=== PATIENT | male | born 1975 | race Caucasian/White ===

== ENCOUNTER 2024-01-05 07:36 | Inpatient (IN) | payer OTHER ==
[~2024-01-05] VITALS: Ht 180.3 cm; Wt 76.2 kg
[2024-01-05 09:11] LABS: Basophils # (auto) 0 10 ^3/uL (0-0.2); Basophils % (auto) 0.2 % (0.0-2.0); Eosinophils # (auto) 0.1 10 ^3/uL (0-0.8); Eosinophils % (auto) 0.6 % (0.0-7.0); Hemoglobin 14.6 g/dL (13.5-17.5); Lymphocytes # (auto) 1.6 10 ^3/uL (0.4-5.4); Lymphocytes % (auto) 12.4 % (10.0-50.0); Mean Corpuscular Hemoglobin 32.1 pg (28.0-32.0); Mean Corpuscular Hgb Conc. 34.7 g/dL (32.0-36.0); Mean Corpuscular Volume 92.5 fL (80.0-100.0); Monocytes # (auto) 0.9 10 ^3/uL (0-1.3); Monocytes % (auto) 7.4 % (0.0-12.0); Neutrophils # (auto) 10.1 10 ^3/uL (1.6-8.6); Neutrophils % (auto) 79.4 % (37.0-80.0); Platelet Count (auto) 228 10^3/uL (140-450); Red Blood Cells 4.54 10^6/uL (4.5-5.90); Red Cell Distribution Width 12.3 % (11.8-14.3); White Blood Cell 12.7 10^3/uL (4.4-10.8)
[2024-01-05] MEDS: KETOROLAC TROMETH 60MG/2ML VIAL IM ONE (09:14)
[2024-01-05 09:34] LABS: Alanine Aminotransferase 12 U/L (7-40); Albumin 4.7 g/dL (3.2-4.8); Alkaline Phosphatase 63 U/L (46-116); Anion Gap 5 (5-15); Aspartate Aminotransferase 8 U/L (13-40); BUN/Creatinine Ratio 6.1 (10.0-20.0); Blood Urea Nitrogen 7 mg/dL (9-23); Carbon Dioxide 30 mmol/L (20-30); Chloride 105 mmol/L (98-107); Glucose 101 mg/dL (74-106); Potassium 4.3 mmol/L (3.5-5.1); Sodium 140 mmol/L (136-145)
[2024-01-05 09:35] LABS: Bilirubin, Total 1.3 mg/dL (0.2-1.0)
[2024-01-05 10:01] LABS: Lipase 50 U/L (12-53)
[2024-01-05] MEDS ORDERED: NITROGLYCERIN 0.4 MG SL TAB SL PRN (10:45)
[2024-01-05] MEDS: PANTOPRAZOLE 40 MG/10 ML VIAL INJ IV ONE (11:25)
[2024-01-05] MEDS: PIPERACILLIN-TAZOB 3.375GM 100 ML IV ONE (11:26)
[2024-01-05] MEDS: SODIUM CHLORIDE 0.9% 1,000 ML IV SCH (11:26)
[2024-01-05] MEDS ORDERED: fentaNYL CITRATE 100 MCG/2 ML VL IV ONE (12:00)
[2024-01-05] MEDS: fentaNYL CITRATE 100 MCG/2 ML VL IV PRN (12:04)
[2024-01-05 13:43] LABS: Urine Bacteria None Seen /hpf (None Seen); Urine WBC None Seen /hpf (0 - 3)
[2024-01-05] MEDS: PIPERACILLIN-TAZOB 3.375GM 100 ML IV SCH (14:00)
[2024-01-05 14:05] LABS: Urine Blood Negative /uL (Negative); Urine Clarity Clear (Clear); Urine Color Light-Yellow (Yellow); Urine Protein, UAD Negative (Negative); Urine Specific Gravity 1.008 (1.001-1.035); Urine Urobilinogen Normal (Negative); Urine pH 6.5 (5.0-9.0)
[2024-01-05 16:50] VITALS: BP 123/61; PULSE 76; RESP 18; TEMP 98; O2SAT 96
[2024-01-05 16:58] VITALS: BP 112/72; PULSE 60; RESP 16; TEMP 97.7; O2SAT 97
[2024-01-05] MEDS ORDERED: MORPHINE SULFATE INJ 2 MG/ml SYRG IV PRN (17:30)
[2024-01-05] MEDS: D5W/SOD CHL 0.45%/KCL 20MEQ 1,000 ML IV SCH (18:33)
[2024-01-05] MEDS: metroNIDAZOLE 500MG/100ML 100 ML IV ONE (18:33)
[2024-01-05] MEDS: MORPHINE SULFATE INJ 2 MG/ml SYRG IV ONE (18:34)
[2024-01-05 21:00] VITALS: BP 115/72; PULSE 66; RESP 18; TEMP 97.8; O2SAT 95
[2024-01-05] MEDS: PANTOPRAZOLE 40 MG/10 ML VIAL INJ IV SCH (21:37)
[2024-01-05] MEDS: metroNIDAZOLE 500MG/100ML 100 ML IV SCH (21:37)
[2024-01-05] MEDS: MORPHINE SULFATE INJ 2 MG/ml SYRG IV PRN (21:42)
[2024-01-06 01:00] VITALS: BP 124/78; PULSE 68; RESP 18; TEMP 97.7; O2SAT 96
[2024-01-06 05:00] VITALS: BP 140/86; PULSE 66; RESP 20; TEMP 97.5; O2SAT 97
[2024-01-06] MEDS: clonazePAM 0.5 MG TAB PO SCH (07:00)
[2024-01-06] MEDS: IOHEXOL 300 MG/ML 100ML BOTTLE IJ ONE (07:47)
[2024-01-06 08:11] LABS: Basophils # (auto) 0 10 ^3/uL (0-0.2); Basophils % (auto) 0.5 % (0.0-2.0); Eosinophils # (auto) 0.1 10 ^3/uL (0-0.8); Hematocrit 41.6 % (41.0-53.0); Hemoglobin 14.7 g/dL (13.5-17.5); Lymphocytes # (auto) 1.3 10 ^3/uL (0.4-5.4); Lymphocytes % (auto) 19.7 % (10.0-50.0); Mean Corpuscular Hemoglobin 32.3 pg (28.0-32.0); Mean Corpuscular Hgb Conc. 35.3 g/dL (32.0-36.0); Mean Corpuscular Volume 91.4 fL (80.0-100.0); Monocytes # (auto) 0.5 10 ^3/uL (0-1.3); Monocytes % (auto) 7.3 % (0.0-12.0); Neutrophils # (auto) 4.7 10 ^3/uL (1.6-8.6); Neutrophils % (auto) 70.5 % (37.0-80.0); Nucleated Red Blood Cells % 0.1 %; Platelet Count (auto) 214 10^3/uL (140-450); Red Blood Cells 4.55 10^6/uL (4.5-5.90); Red Cell Distribution Width 12.4 % (11.8-14.3); White Blood Cell 6.6 10^3/uL (4.4-10.8)
[2024-01-06 08:26] LABS: Alanine Aminotransferase 11 U/L (7-40); Albumin 4.4 g/dL (3.2-4.8); Alkaline Phosphatase 53 U/L (46-116); Anion Gap 8 (5-15); Aspartate Aminotransferase 8 U/L (13-40); BUN/Creatinine Ratio 8.3 (10.0-20.0); Bilirubin, Total 1.6 mg/dL (0.2-1.0); Blood Urea Nitrogen 9 mg/dL (9-23); Calcium 9.7 mg/dL (8.7-10.4); Carbon Dioxide 26 mmol/L (20-31); Chloride 108 mmol/L (98-107); Potassium 4.3 mmol/L (3.5-5.1); Sodium 142 mmol/L (136-145); Total Protein 6.5 g/dL (5.7-8.2)
[2024-01-06 08:30] LABS: Glucose 89 mg/dL (74-106)
[2024-01-06 09:04] VITALS: BP 119/80; PULSE 68; RESP 18; TEMP 98.4; O2SAT 96
[2024-01-06] MEDS ORDERED: PANTOPRAZOLE 40 MG/10 ML VIAL INJ IV SCH (10:00)
[2024-01-06 14:22] VITALS: BP 122/77; PULSE 64; RESP 19; TEMP 97.3; O2SAT 95
[2024-01-06 17:00] VITALS: BP 135/79; PULSE 78; RESP 20; TEMP 98; O2SAT 95
[2024-01-06] MEDS: ONDANSETRON HCL 4 MG/2 ML VIAL IV PRN (20:35)
[2024-01-06 21:00] VITALS: BP 121/69; PULSE 65; RESP 20; TEMP 98; O2SAT 97
[2024-01-07 05:00] VITALS: BP 120/71; PULSE 66; RESP 19; TEMP 97.7; O2SAT 96
[2024-01-07 09:00] VITALS: BP 152/93; PULSE 87; RESP 20; TEMP 98.2; O2SAT 96
[2024-01-07 12:46] VITALS: BP 127/81; PULSE 81; RESP 18; TEMP 97.9; O2SAT 95
[2024-01-07 16:46] VITALS: BP 120/82; PULSE 81; RESP 16; TEMP 98.4; O2SAT 91
[2024-01-07 21:00] VITALS: BP 122/81; PULSE 66; RESP 18; TEMP 97.5; O2SAT 95
[2024-01-08] VITALS (8 sets, daily range): BP systolic 105–151; BP diastolic 66–93; PULSE 60–73; RESP 16–18; TEMP 97.2–98; O2SAT 90–97
[2024-01-08] MEDS: IBUPROFEN 600 MG TAB PO PRN (04:48)
[2024-01-08] MEDS ORDERED: CLON0.5T3 PO (06:45)
[2024-01-08 07:43] LABS: Basophils # (auto) 0 10 ^3/uL (0-0.2); Basophils % (auto) 0.4 % (0.0-2.0); Eosinophils # (auto) 0.1 10 ^3/uL (0-0.8); Eosinophils % (auto) 2.1 % (0.0-7.0); Hematocrit 43.8 % (41.0-53.0); Hemoglobin 15.4 g/dL (13.5-17.5); Lymphocytes # (auto) 1.1 10 ^3/uL (0.4-5.4); Lymphocytes % (auto) 21.5 % (10.0-50.0); Mean Corpuscular Volume 91.5 fL (80.0-100.0); Monocytes # (auto) 0.4 10 ^3/uL (0-1.3); Monocytes % (auto) 7.7 % (0.0-12.0); Neutrophils # (auto) 3.6 10 ^3/uL (1.6-8.6); Neutrophils % (auto) 68.3 % (37.0-80.0); Nucleated Red Blood Cells % 0.1 %; Platelet Count (auto) 234 10^3/uL (140-450); Red Blood Cells 4.79 10^6/uL (4.5-5.90); Red Cell Distribution Width 12.3 % (11.8-14.3); White Blood Cell 5.3 10^3/uL (4.4-10.8)
[2024-01-08] MEDS: DOCUSATE SOD 100 MG CAP PO PRN (09:30)
[2024-01-09 05:00] VITALS: BP 122/80; PULSE 71; RESP 19; TEMP 97.4; O2SAT 94
[2024-01-09 08:00] VITALS: BP 151/89; PULSE 60; PULSE 71; RESP 16; RESP 20; TEMP 97; O2SAT 96; O2SAT 99
[2024-01-09] MEDS ORDERED: LEVO500T91 PO (10:23)
[2024-01-09] MEDS ORDERED: HYDR-4902 PO (10:23)
[2024-01-09] MEDS ORDERED: METR-344 PO (10:23)
[2024-01-09 12:00] VITALS: BP 117/84; PULSE 72; RESP 18; TEMP 98; O2SAT 99
[2024-01-09 13:06] VITALS: BP 117/84; PULSE 72; RESP 19
== END 2024-01-09 14:30 | disposition home or self-care (01) | DRG 392 ==
LOC: ER 07:36 → OVERFLOW 10:45 → WEST WING 15:38
PROVIDERS: ADMIT Nurse Practitioner Family; ATTEND Family Medicine
DX: K57.32 Diverticulitis of large intestine without perforation or abscess without bleeding (principal); G20.A1 Parkinson's disease without dyskinesia, without mention of fluctuations; E86.0 Dehydration; G89.29 Other chronic pain; K59.00 Constipation, unspecified; Z90.49 Acquired absence of other specified parts of digestive tract; Z79.899 Other long term (current) drug therapy
CPT/HCPCS: 36415; 71045; 74176; 74177; 80053; 81001; 83605; 83690; 85025; 93971; G0378; J1885; J2405; J2470; J2543; J3490